=== PATIENT | male | born 1980 ===

== ENCOUNTER → 2021-08-26 | Day surgery (SDC) | payer OTHER ==
[~2021-08-26] VITALS: Ht 172.7 cm; Wt 122.5 kg
[~2021-08-26] MED LIST: HYDROCODON-ACE1 EAC2 PO; LIPITOR20 MG PO; METFORMIN HCL500 MG PO; PERCOCET 5-3251 EACH PO; PRINIVIL20 MG PO; SULFAMETHOXAZO1 EACH PO
[2021-08-26 06:53] LABS: BUN/CREAT RATIO (CALC) 13.5 RATIO; CREATININE 0.74 mg/dL (0.67-1.17); POTASSIUM 4.1 mmol/L (3.5-5.1)
== END | disposition home or self-care (01) ==
LOC: FAS 05:59
PROVIDERS: Anesthesiology
DX: T85.733A Infection and inflammatory reaction due to implanted electronic neurostimulator of spinal cord, electrode (lead), initial encounter (principal); T81.41XA Infection following a procedure, superficial incisional surgical site, initial encounter; I10 Essential (primary) hypertension; E11.9 Type 2 diabetes mellitus without complications; Z88.0 Allergy status to penicillin; Z88.1 Allergy status to other antibiotic agents; Z79.84 Long term (current) use of oral hypoglycemic drugs; Z79.899 Other long term (current) drug therapy; F17.210 Nicotine dependence, cigarettes, uncomplicated
CPT/HCPCS: 36415; 72020; 76000; 80048; 82962; 87070; 87075; 87205; 93005; J1170; J1885; J2250; J2405; J2704; J3010; J3370; J7050; J7120